=== PATIENT | female | born 2000 | race Hispanic/Latino ===

== ENCOUNTER 2023-04-03 13:41 | Emergency (ER) | payer SELFPAY ==
[~2023-04-03] VITALS: Ht 154.9 cm; Wt 68.0 kg
[~2023-04-03 13:41] MED LIST: TOBREX OPTH5 ML/BTL OU
[2023-04-03 13:53] VITALS: BP 135/77
[2023-04-03 14:00] VITALS: BP 123/74
[2023-04-03 14:09] LABS: URINE BILIRUBIN - DIPSTICK Negative (NEGATIVE); URINE BLOOD DIPSTICK Negative (NEGATIVE); URINE GLUCOSE - DIPSTICK Negative (NEGATIVE); URINE KETONE Negative (NEGATIVE); URINE LEUK ESTERASE Trace (NEGATIVE); URINE NITRITE - DIPSTICK Negative (Negative); URINE PROTEIN - DIPSTICK Negative (NEG-TRACE); URINE UROBILINOGEN - DIPSTICK 0.2 E.U./dL (0.2)
[2023-04-03 14:09] LABS: BASO% 0.4 % (0-3); EOS% 0.7 % (0-8); IMMATURE GRANULOCYTES 0.2 % (0.0-5.0); MEAN CELL VOLUME 78.3 fL CALC (80.0-100.0); MEAN CORPUSCULAR HGB 25.1 pG CALC (26.0-32.0); MONO% 6.6 % (2-13); NEUT# 7.13 thou/uL (2.00-7.15); NEUT% 67.1 % (42-76); RED BLOOD COUNT 5.3 mill/uL (4.20-5.60); RED CELL DISTRI WIDTH 14.1 % (11.5-15.5)
[2023-04-03 14:10] LABS: URINE COLOR Yellow
[2023-04-03 14:13] LABS: HEMATOCRIT 41.5 % (37.0-47.0); HEMOGLOBIN 13.3 g/dl (12.0-16.0)
[2023-04-03 14:20] LABS: ALKALINE PHOSPHATASE 102 u/l (38-126); ANION GAP 15 (6-22 (CALC)); BUN 9 mg/dL (7-17); BUN/CREATININE RATIO 13 (12-20 (CALC)); CARBON DIOXIDE 21 mmol/l (22-30); CHLORIDE 105 mmol/l (95-108); CREATININE 0.7 mg/dL (0.5-1.0); GFR FOR AFR.AMER. > 60 ML/MIN (>=60 (CALC)); GFR OTHER RACES > 60 ML/MIN (>=60 (CALC)); POTASSIUM 3.7 mmol/l (3.5-5.1); SGOT/AST 29 u/l (14-36); SODIUM 138 mmol/l (137-146)
[2023-04-03 14:21] LABS: BILIRUBIN, TOTAL 0.8 mg/dL (0.02-1.3); TOTAL PROTEIN 9.1 g/dL (6.3-8.2)
[2023-04-03 15:00] LABS: BETA-HCG, QUANT(RESULT NUMBER) 19615 mIU/mL
[2023-04-03 18:48] VITALS: BP 123/74
== END 2023-04-03 18:56 | disposition short-term general hospital (02) | DRG 833 ==
LOC: ED 13:41
PROVIDERS: Family Medicine
DX: O00.90 Unspecified ectopic pregnancy without intrauterine pregnancy (principal)